=== PATIENT | male | born 1965 | race Caucasian/White ===

== ENCOUNTER 2016-10-11 15:19 | Observation (INO) | payer OTHER ==
[~2016-10-11] VITALS: Ht 182.9 cm; Wt 86.6 kg
[2016-10-11] VITALS (7 sets, daily range): BP systolic 112–193; BP diastolic 65–99; PULSE 51–74; RESP 10–22; O2SAT 93–100
--- NOTE | 2016-10-11 15:34 | ED.REPORT ---
HPI-Chest Pain 40 and Over Date of Service Oct 11, 2016 ED Provider: Miki Merritt DO A 51 year old male with a history of hyperlipidemia, kidney stones, coronary artery disease and seven cardiac stents presents to the ED complaining of chest pain onset two hours ago while the pt was working outside. The pain is described as "heavy pressure" that does not radiate significantly. It began two hours ago and has been present intermittently since ranging from 09/22 to 11/23. The pt also admits to nausea, vomiting, belching and diaphoresis, but denies shortness of breath, dysuria, back pain, cough or pleuritic pain. The pt believes that his symptoms may be due to dehydration. He notes symptoms are similar when compared to his previous SC 6 years ago in [place]. He took two 81 mg aspirin prior to arrival in addition to the 81mg he takes every morning. Nursing Notes Stated Complaint: CHEST PAIN Chief Complaint: Chest Pain Nursing Notes Reviewed: Yes Allergies: Coded Allergies: Penicillins (Verified Allergy, Unknown, 10/11/16) Scheduled Aspirin (Aspirin) 81 Mg Tablet 81 MG PO DAILY Atorvastatin (Lipitor) 80 Mg Tablet 80 MG PO DAILY Omeprazole (Omeprazole) 40 Mg Capsule.dr 40 MG PO DAILY Scheduled PRN Hydrocodone-Acetaminophen 5-300 mg (Hydrocodone-Acetaminophen 5-300 mg) 1 Each Tablet 1 TABLET PO Q4H PRN PRN For Pain Ibuprofen (Ibuprofen) 800 Mg Tablet 800 MG PO TID PRN PRN For Pain Miscellaneous Medications Multivitamin (Multivitamins) 1 Each Capsule 1 EACH PO General Time Seen by MD: 15:34 Chief Complaint Chest pain Hx Obtained From: Patient Sudden in Onset?: Yes Onset Occurred: 1 - 4 hours ago Symptom Duration: Intermittent Recent Healthcare: Recent doctor visit Similar Sx Previous: Yes Past Medical History Past Medical History hyperlipidemia kidney stones coronary artery disease denies diabetes or hypertension Past Surgical History cardiac stents x7 Smoking History Never Smoker Social History visiting from [place] Other Social History: Good social support Ambulatory Status Independent Review of Systems Respiratory: Denies: Non-productive cough, Pleuritic pain, Shortness of breath Cardiovascular: Reports: Chest pain GI: Reports: Belching, Nausea, Vomiting Musculoskeletal: Denies: Back pain, Neck pain Skin: Reports Diaphoresis, Denies Rash Complete sys rev & neg: except as marked. Male: Denies Dysuria Physical Exam Initial Vital Signs Vital Signs (First) Date Time Temp Pulse Resp B/P Pulse Ox O2 Delivery O2 Flow Rate FiO2 10/11/16 15:21 36.6 51 22 193/99 100 Room Air Initial VS: Reviewed General/Constitutional: Awake, Alert Distress / Hydration: Positive: Distress moderate appears uncomfortable Respiratory / Chest: Atraumatic, Breath sounds NL, Breath sounds = bilat, No respiratory distress chest pain is not reproducible Cardiovascular: Regular rhythm, Heart sounds NL Heart Rate / Rhythm: Positive: Bradycardia Abdomen: Atraumatic, Soft, Non-tender Neck: Atraumatic, Supple, Full range of motion Back: Atraumatic, Full range of motion Lower Extremity / Pelvis / MS: Atraumatic, Full range of motion, No edema Skin: Atraumatic, Color NL, No rash, Warm diaphoretic Neurologic: Oriented X3, Speech NL, No motor deficits, No sensory deficits Psychiatric: Affect NL, Mood NL Head / Eyes: Atraumatic, Normocephalic, PERRL, EOMI ENT: Atraumatic, Airway patent, Mucous membranes moist Upper Extremity / MS: Atraumatic, Full range of motion Interpretation & Diagnostics Interpretation & Diagnostics: CT KUB: IMPRESSION: Possible mild short segment transverse colitis, statistically infectious or inflammatory. Otherwise, no acute abnormality seen. Bilateral nephrolithiasis however no evidence of urinary obstruction. Dictated by: Jameel Shook M.D. on 10/11/2016 at 19:37 Approved by: Jameel Shook M.D. on 10/11/2016 at 19:42 Lab Results Interpretation Result Diagram: 10/13/16 1210 10/13/16 1210 Test 10/11/16 15:35 10/11/16 18:50 Hold Purple Top Tube Received (Received) D-Dimer < 0.50mg/L FEU (<0.50) Hold Blue Top Tube Received (Received) Hold [place] Top Tube Received (Received) Hold [place] Top Tube Received (Received) Urine Color Dark yellow (YELLOW) Urine Appearance Clear (CLEAR,HAZY) Urine pH 5.5 (5.0-8.0) Urine Specific [place] 1.030 (1.003-1.035) Urine Protein Tracemg/dL (NEG,TRACE) Urine Glucose (UA) Negativemg/dL (NEGATIVE) Urine Ketones 40mg/dL (NEGATIVE) Urine Occult Blood Moderate (NEGATIVE) Urine Nitrite Negative (NEGATIVE) Urine Bilirubin Negative (NEGATIVE) Urine Urobilinogen Normalmg/dL (NORMAL) Urine Leukocyte Esterase Negative (NEGATIVE) Urine RBC 3-10/hpf (0-2) Urine WBC 0-5/hpf (0-5) Urine Epithelial Cells None/hpf (NONE-MOD) Urine Crystals None seen (NONE SEEN) Urine Bacteria Few/hpf (NONE-FEW) Urine Hyaline Casts None/lpf (NONE) Urine Granular Casts None seen (NONE SEEN) Urine Waxy Casts None seen (NONE SEEN) Urine Red Blood Cell Casts None seen (NONE SEEN) Urine White Blood Cell Casts None seen (NONE SEEN) Urine Mucus Present (None Seen) Urine Trichomonas None seen (NONE SEEN) Urine Yeast None (NONE SEEN) Urinalysis Comment None Urine Culture Reflexed Not indicated ECG Interpretation ECG Interpretation: sinus bradycardia with a rate of [address] changes Time: 15:30 Interpreted by: ED physician ECG Interpretation: normal sinus rhythm with a rate of [address] changes Time: 19:48 Interpreted by: ED physician X-Ray Chest Interpretation Chest Xray Interpretation: IMPRESSION: No focal consolidation. Bibasilar scarring/atelectasis Dictated by: Jameel Shook M.D. on 10/11/2016 at 16:33 Approved by: Jameel Shook M.D. on 10/11/2016 at 16:33 Interpretation / Wet Read by: Interpret - Radiologist Re-Eval/Medical Decision Med Decision/Clinical Course 51 y/o male with significant h/o CAD s/p PCI with 7 stents presents with chest pain, nausea vomiting and diaphoresis. His pain is similar to his previous heart attack, however he believes he may have become dehydrated or had some heat stroke. He took at total of 325mg of ASA today. EKGs were neg for STEMI x2 here in the ED as well as initial and 2 hr troponin. His pain did not respond to nitro x3 but improved somewhat with morphine. It further improved with a GI coctail and lorazepam(pt requested something to help him sleep/relax) . Despite this, 3 liters of fluid, and several antiemetics he continued to have intractable nausea and vomiting. D dimer was neg. CT KUB was ordered for hematuria and abd pain but was only remarkable for nephrolithiasis without ureterolithiasis. Pt with unexplainable significant leukocytosis. He is admitted for overnight treatment/monitoring of his sx, further workup and ACS r/ o. Time of Eval: 16:11 Re-Evaluation/Progress Note: Pt rechecked, who reports that he is still in pain. Options for further treament are discussed. Time of Eval: 17:15 Patient Status: Condition improved Re-Evaluation/Progress Note: Pt rechecked, whose pain has improved somewhat. The plan for more fluids is discussed. Time of Eval: 18:50 Re-Evaluation/Progress Note: Pt rechecked, whose pain has improved but remains nauseated. Options for additional treatment are discussed. Time of Eval: 20:11 Re-Evaluation/Progress Note: Pt rechecked, who remains nauseated. The diagnosis and plan for admission are discussed. The pt understands and agrees with the plan. All questions are addressed at this time. Consultation : Referral / Consult Name: Milind Brock MD Consulted With: Hospitalist Call Returned at: 20:15 Busboy: Agrees with eval, Agrees with plan, Accepts admit Note: Spoke with Dr. Brock, hospitalist, regarding pt's case. Dr. Brock agrees with the evaluation and agrees to admit the pt. He recommends D-dimer. Counseled Regarding: Diagnosis, Lab results, Need for admission Discharge & Departure Primary Impression: Intractable nausea and vomiting Vomiting type: unspecified Qualified Code: R11.2 - Nausea with vomiting, unspecified Additional Impressions: Chest pain Chest pain type: unspecified Qualified Code: R07.9 - Chest pain, unspecified Leukocytosis Leukocytosis type: unspecified Qualified Code: D72.829 - Elevated white blood cell count, unspecified Hematuria Ruled Out: Ureterolithiasis Disposition: ADMITTED TO HOSPITAL Discharge Condition All VS Reviewed: Yes Condition: Stable Referrals: [facility] Scribe Attestation Portions of this note were transcribed by Vini Jaimes. I, Dr. Merritt personally performed the history, physical exam and medical decision-making; I reviewed and confirmed the accuracy of the information in the transcribed note. copies to: [facility] Miki Merritt DO Oct 11, 2016 15:34 VINI JAIMES Oct 11, 2016 15:42 Condition: Stable Referrals: [facility] Scribe Attestation Portions of this note were transcribed by Vini Jaimes. I, Dr. Merritt personally performed the history, physical exam and medical decision-making; I reviewed and confirmed the accuracy of the information in the transcribed note. copies to: [facility] Miki Merritt DO Oct 11, 2016 15:34 VINI JAIMES Oct 11, 2016 15:42
[2016-10-11] MEDS ORDERED: 0.9% Sodium Chloride 1,000 ML IV ONE ×3 (15:42→17:17)
[2016-10-11] MEDS ORDERED: Ondansetron 2 mg/mL 2 mL Inj IVPUSH ONE (15:45)
[2016-10-11 16:17] LABS: BASOPHILS % (AUTO) 0.2 % (0-3); EOSINOPHILS % (AUTO) 0.5 % (0-5); MONOCYTES % (AUTO) 8.1 % (4-12); Mean Corpuscular Volume 91.9 fL (81-100); NEUTROPHILS % (AUTO) 78.6 % (40-74); Platelet Count 290 bil/L (150-400)
--- NOTE | 2016-10-11 16:35 | DRSVH ---
PROCEDURE: X-RAY CHEST, TWO VIEWS ([id number]) INDICATIONS: chest pain TECHNIQUE: 2 views of the chest were acquired. COMPARISON: None. FINDINGS: Surgical changes and devices: None. Lungs and pleura: No pleural effusions or pneumothorax. Lungs are clear. Bibasilar scarring/atelec tasis. Mediastinum: Mediastinal contours are normal. Heart size is normal. Bones and chest wall: No suspicious bony abnormalities. Soft tissues appear unremarkable. IMPRESSION: No focal consolidation. Bibasilar scarring/atelectasis Dictated by: Jameel Shook M.D. on 10/11/2016 at 16:33 Approved by: Jameel Shook M.D. on 10/11/2016 at 16:33
[2016-10-11 16:56] LABS: TROPONIN T < 0.010 ug/L (0.0-0.011)
[2016-10-11] MEDS ORDERED: LORazepam 0.5 mg Tablet PO ONE (17:20)
[2016-10-11] MEDS ORDERED: LidocaineVisc 2%:Antacid 1:1 10 mL Syringe PO ONE (17:20)
[2016-10-11] MEDS ORDERED: Promethazine Inj 25 MG in Dextrose 5%-Pha MIX 50 ML IV ONE (18:55)
--- NOTE | 2016-10-11 19:44 | DRSVH ---
PROCEDURE: CT KUB ([id number]) INDICATIONS: hematuria, abd pain TECHNIQUE: Noncontrast 5 mm thick sections acquired from the diaphragms to the symphysis. 5 mm thick coronal an d sagittal reformats were then performed. For radiation dose reduction, the following was used: aut omated exposure control, adjustment of mA and/or kV according to patient size. COMPARISON: None. FINDINGS: Image quality: Excellent. Lung bases: Lung bases are clear. Heart size is normal. Urinary system: Both kidneys are normal in size. Multiple bilateral renal calculi measuring up to 7 mm on the right, and a 3 mm on the left. No hydronephrosis or perinephric fat stranding. Both ureter s appear non-dilated throughout their expected courses. Bladder wall thickness is normal; no calcifi ed bladder stones. Other solid organs: Liver and spleen are normal in size. Gallbladder negative. Pancreas is normal in contours. No adrenal nodules. Peritoneum and bowel: There is possible mild short segment thickening of transverse colon for example image 40 series 2 with adjacent mild fat stranding although limited evaluation given decompressed st ate of the time exam. No free fluid or air. Appendix not definitely identified however no suspicious right lower quadrant inflammatory changes. Nodes and vessels: No retroperitoneal or mesenteric adenopathy by size criteria. Aorta and inferior vena cava are normal in caliber. Abdominal wall: No ventral hernias. Pelvis: No free pelvic fluid. No inguinal hernias or adenopathy. Bones: No suspicious bony lesions. No vertebral body compression fractures. IMPRESSION: Possible mild short segment transverse colitis, statistically infectious or inflammatory. Otherwise, no acute abnormality seen. Bilateral nephrolithiasis however no evidence of urinary obstruction. Dictated by: Jameel Shook M.D. on 10/11/2016 at 19:37 Approved by: Jameel Shook M.D. on 10/11/2016 at 19:42
[2016-10-11 21:09] LABS: APPEARANCE,URINE CLEAR (CLEAR,HAZY); COLOR,URINE DARK YELLOW (YELLOW); PH,URINE 5.5 (5.0-8.0)
[2016-10-11 21:10] LABS: OCCULT BLOOD,URINE MODERATE (NEGATIVE); UROBILINOGEN,URINE NORMAL (NORMAL)
[2016-10-11] MEDS ORDERED: Polyethylene Glycol (PEG) 17 Gm Powder PO PRN (23:05)
[2016-10-11] MEDS ORDERED: Ondansetron 2 mg/mL 2 mL Inj IVPUSH PRN (23:05)
[2016-10-11] MEDS ORDERED: Alum-Mag Hydrox-Simeth 30 mL Suspension PO PRN (23:05)
--- NOTE | 2016-10-11 23:49 | PCM.HPMED ---
Subjective Date of Service Oct 11, 2016 Primary Provider: Admitting Physician: Milind Brock MD Primary Care Physician: Other,Physician Attending Physician: Milind Brock MD Chief Complaint: Patient is a 51-year-old male with medical history significant for coronary artery disease status post 7 stents, dyslipidemia, and GERD initially presented with "chest heaviness". 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 Chest pain constant greater than 2 hours and continues, unabated by nitroglycerin. He denies any radiation arms or jaws, nor does he have any lightheadedness dizziness or syncopal presyncopal episode. He does however, state significant nausea, vomiting, belching, and also diaphoretic. Patient proceeded to take 162 mg aspirin [address] to the ED. Patient had one similar episode of chest pain in the past, and that time, found to have occluded coronary arteries and received stenting. Patient denies any sudden cardiac arrest and his family. Prior to admission, patient was state of fairly good health, no exertional dyspnea or chest pain, no fevers no chills, no sick contact. He further denies any history of alcohol abuse or tobacco use. Review of Systems: A comprehensive review of systems was conducted with the patient and found to be negative except as above in the History of Present Illness. Allergies Coded Allergies: Penicillins (Verified Allergy, Unknown, 10/11/16) Home Medications Atorvastatin 40mg daily Omeprazole unknown dose PMH Dyslipidemia Coronary artery disease status post stenting Nephrolithiasis Surgical History Reported 7 cardiac stents 5 years ago Family History Mother with diabetes type II Father with skin cancer Social History Hx Alcohol Use: Yes Alcoholic Drinks Per Day: Occasional Hx Substance Use: No Smoking Status: Never Smoker Exam Vital Signs Vital Sign - Last Date Time Temp Pulse Resp B/P Pulse Ox O2 Delivery O2 Flow Rate FiO2 10/11/16 21:59 36.6 88 13 119/70 98 Room Air Exam General: No acute distress, appropriately interactive HEENT: Normocephalic, atraumatic. PERRLA, EOMI, Anicteric sclerae, moist conjunctivae. Neck: No JVD, No bruits. No lymphadenopathy or thyromegaly. Cardiovascular: Regular rate and rhythm with no murmurs, rubs, or gallops appreciated Pulmonary: b/l air sound with no crackles, wheezes, or rhonchi. no use of accessory muscles. Abdomen: +Bowel sound, Soft, nontender, nondistended. Negative for [place] sign , no costovertebral tenderness Extremities: No clubbing or cyanosis, no lymphedema, no b/l lower leg edema Skin: Normal temperature, turgor, and texture; no rash. No visualized skin ulcer. Neurological: CN II-VII grossly intact, moving equally on all 4 extremities Psychiatric: Normal mood and affect. AOx3 Lab and Diagnostics Result Diagram: 10/11/16 1535 10/11/16 1535 X-Rays, CTs and MRIs PROCEDURE: CT KUB INDICATIONS: hematuria, abd pain IMPRESSION: Possible mild short segment transverse colitis, statistically infectious or inflammatory. Otherwise, no acute abnormality seen. Bilateral nephrolithiasis however no evidence of urinary obstruction. Dictated by: Jameel Shook M.D. on 10/11/2016 at 19:37 PROCEDURE: X-RAY CHEST, TWO VIEWS INDICATIONS: chest pain IMPRESSION: No focal consolidation. Bibasilar scarring/atelectasis Dictated by: Jameel Shook M.D. on 10/11/2016 at 16:33 Assessment & Plan Patient is a 51-year-old male with a medical history significant for dyslipidemia and coronary artery disease status post stenting admitted for ACS rule out. Acute Chest pain. Present on admission - Probably gastritis, GERD - EKG was sinus bradycardia, no ST changes, troponin T negative 2 - Risk stratification given history of coronary artery disease with stenting, JORGE score is 3, 13% risk of [place] next 14 days - NM treadmill stress test - Start Aspirin, atorvastatin, metoprolol, and lisinopril - Telemetry order Colitis - CT scan showing possible short segment thickening of the transverse colon - Probable viral - Monitor Hypertension - Metoprolol and lisinopril as above Dyslipidemia - Atorvastatin 40 mg daily - Lipid panel ordered Hyperglycemia - A1c pending GERD - Protonix 40 mg daily CODE STATUS: Full code DVT prophylaxis: Heparin subcutaneous Bowel regimen as needed Patient Status: Patient is admitted under observation status with expected length of stay LESS than 2 midnights due to severity of presenting symptoms, risk of adverse event, and complexity of treatment plan. Attending Statement The patient was seen and examined together with Dr. Dang on 10/11 and I agree with the history, exam and plan as outlined in the note above. Clark Dang DO Oct 11, 2016 23:48 Milind Brock MD Oct 12, 2016 04:24
[2016-10-12] VITALS (8 sets, daily range): BP systolic 124–150; BP diastolic 67–78; PULSE 72–94; RESP 14–20; O2SAT 95–99
[2016-10-12] MEDS: Heparin 5,000 Unit/mL Inj SUBQ SCH ×3 (00:12→16:24)
[2016-10-12] MEDS: Pantoprazole 40 mg ER24 Tablet PO SCH ×2 (00:12→08:10)
[2016-10-12] MEDS ORDERED: ASPI-973 PO (00:58)
[2016-10-12] MEDS ORDERED: OMEP40CA36 PO (00:59)
[2016-10-12] MEDS ORDERED: MULT1CAP33 PO (01:01)
[2016-10-12] MEDS ORDERED: IBUP800T28 PO (01:01)
[2016-10-12] MEDS ORDERED: HYDR-3090 PO (01:01)
[2016-10-12] MEDS ORDERED: ATOR80TA PO (01:01)
[2016-10-12 02:48] LABS: BASOPHILS % (AUTO) 0.1 % (0-3); EOSINOPHILS % (AUTO) 0 % (0-5); MONOCYTES % (AUTO) 8.9 % (4-12); Mean Corpuscular Hemoglobin 31.8 pg (27.0-35.0); Mean Corpuscular Volume 92.1 fL (81-100); NEUTROPHILS % (AUTO) 78.1 % (40-74); Platelet Count 211 bil/L (150-400)
--- NOTE | 2016-10-12 14:13 | PCM.PNMED ---
Subjective Date of Service Oct 12, 2016 Subjective Mr. Adam Zhao is a 51 year old gentleman with a significant past medical history of severe Coronary Artery disease with 7x stents. He has been admitted under observation status due to with recent onset of chest pressure, diaphoresis , nausea, and vomiting after working outside. He reports the pain was constant and ws not amenable to nitro at home. The pain was non radiating. He denies lightheadedness, syncope, shortness of breath, abdominal pain, diarrhea, constipation, dysuria. Exam Vital Signs Vital Sign - Last Date Time Temp Pulse Resp B/P Pulse Ox O2 Delivery O2 Flow Rate FiO2 10/12/16 12:43 37.2 75 16 130/72 99 Room Air Intake and Output 10/11/16 10/11/16 10/12/16 Cumulative From/Thru 15:00 23:00 07:00 10/11/16 15:21 - 10/12/16 05:38 Intake Total 3100 ml 210 ml 3310 ml Output Total 775 ml 775 ml Balance 3100 ml -565 ml 2535 ml Intake Oral 200 ml 200 ml IV Total 3100 ml 10 ml 3110 ml Output Urine Total 775 ml 775 ml # Bowel Movements 0 0 Exam General: Middle aged gentleman in no acute distress, appropriately interactive HEENT: Normocephalic, atraumatic. PERRLA, EOMI, Anicteric sclerae, moist conjunctivae. Neck: No JVD, No bruits. No lymphadenopathy or thyromegaly. Cardiovascular: CTAB with no crackles, wheezes, or rhonchi. no use of accessory muscles. Abdomen: Normoactive Bowel sound, Soft, nontender, nondistended. Extremities: No clubbing or cyanosis, no lymphedema,no edema Skin: Normal temperature, turgor, and texture; no rash. No visualized skin ulcers. Neurological: CN II-VII grossly intact, moving equally on all 4 extremities Psychiatric: Normal mood and affect. A&Ox3 IVs and Medications Medications Reviewed: Medications were reviewed in detail Lab and Diagnostics Result Diagram: 10/12/1623410/12/16234 X-Rays, CTs and MRIs PROCEDURE: CT KUB INDICATIONS: hematuria, abd pain IMPRESSION: Possible mild short segment transverse colitis, statistically infectious or inflammatory. Otherwise, no acute abnormality seen. Bilateral nephrolithiasis however no evidence of urinary obstruction. Dictated by: Jameel Shook M.D. on 10/11/2016 at 19:37 PROCEDURE: X-RAY CHEST, TWO VIEWS INDICATIONS: chest pain IMPRESSION: No focal consolidation. Bibasilar scarring/atelectasis Dictated by: Jameel Shook M.D. on 10/11/2016 at 16:33 Assessment & Plan Patient is a 51-year-old male with a medical history significant for dyslipidemia and coronary artery disease status post stenting admitted for ACS rule out. Acute Chest pain. Present on admission. Active. - Likely ACS, Significant CAD and 7x stents. - EKG was sinus bradycardia, no ST changes, troponin T negative 2 - Risk stratification given history of coronary artery disease with stenting, JORGE score is 3, 13% risk of [place] next 14 days - Start Aspirin, atorvastatin, metoprolol, and lisinopril - Telemetry order - NM treadmill stress test complete and pending. - Troponins positive 0.370. chronic conditions. Hypertension - Metoprolol and lisinopril as above Dyslipidemia - Atorvastatin 40 mg daily - Lipid panel ordered Hyperglycemia - A1c pending GERD - Protonix 40 mg daily CODE STATUS: Full code DVT prophylaxis: Heparin subcutaneous Bowel regimen as needed Patient Status: Patient is admitted under observation status with expected length of stay LESS than 2 midnights due to severity of presenting symptoms, risk of adverse event, and complexity of treatment plan. Pain Evaluation: Adequate Pain Control Time spent 35 minutes Attending Statement I interviewed and examined the patient on rounds today. High pretest probability of coronary ischemia with negative treadmill test. Await cardiology opinion. I agree with the assessment and plan as stated above. ISAIAS LUCIANO DO Oct 12, 2016 14:13 Tariq Vasquez MD Oct 12, 2016 17:40
[2016-10-13] VITALS (18 sets, daily range): BP systolic 122–147; BP diastolic 65–86; PULSE 64–86; RESP 15–20; O2SAT 96–99
[2016-10-13] MEDS: Heparin 5,000 Unit/mL Inj SUBQ SCH ×2 (00:42→08:37)
[2016-10-13] MEDS: Pantoprazole 40 mg ER24 Tablet PO SCH (08:37)
[2016-10-13] MEDS ORDERED: Heparin 5,000 Unit/mL Inj IVPUSH PRN (10:35)
[2016-10-13] MEDS ORDERED: Heparin 25K Unit/500mL 0.45 NS 25,000 UNIT in IV Premix 1 EACH IV SCH (10:35)
[2016-10-13] MEDS ORDERED: 0.9% Sodium Chloride 1,000 ML IV ONE ×2 (12:14→18:35)
[2016-10-13 12:21] LABS: Mean Corpuscular Hemoglobin 31.7 pg (27.0-35.0); Mean Corpuscular Volume 91.1 fL (81-100)
[2016-10-13 13:02] LABS: Bilirubin, Direct 0.2 mg/dL (0.0-0.3); Creatine Kinase 183 U/L (21-232)
[2016-10-13 13:05] LABS: TROPONIN T 0.257 ug/L (0.0-0.011)
--- NOTE | 2016-10-13 13:31 | CONS ---
[address] [address] CONSULTATION REPORT PATIENT: SERENA SOARES : 1965 MR#: [id number] ADMIT: 10/11/2016 JOB ID: [id number] DATE OF SERVICE: 10/13/2016 CHIEF COMPLAINT: Chest pain. HISTORY OF PRESENT ILLNESS: Patient is a 51-year-old man with history of coronary artery disease, status post multivessel PCI, April 2010, at [facility]. He resides in [facility] but is visiting his father and helping him care for his property. He was up on a ladder, painting his father's house, when suddenly he experienced severe chest pain, sweating, nausea, and vomiting. He describes the pain as "heavy pressure," which is nonradiating and is localized substernally. It was 7/10 to 9/10 intensity and lasted 2 hours before it subsided. It responded favorably to normal saline boluses and nitroglycerin drip. Cardiology is consulted to assist with management after troponins came back positive. Workup so far included reassuring graded exercise stress test with myocardial perfusion imaging performed on yesterday, on October 12. However, after the stress test, his troponin came back and was elevated and most recently at 0.396. Rest images were acquired today. PAST MEDICAL HISTORY: 1. Coronary artery disease. Status post stenting in 2010 with normal stress test in 2013. The patient is closely monitored by Dr. Chaney of [facility] in [place]. Angiogram back in 2010 was initiated due to elevated troponin I of 0.51 with classic angina. Cardiac catheterization demonstrated extensive disease throughout right coronary artery with chronic distal occlusion and a huge collateral from the left. He also had significant mid LAD disease. Left circumflex has moderate irregularities. Right coronary artery was pre-dilated. A 3.5 x 38 TAXUS stent was deployed distally, 3.5 x 32 was deployed in the mid portion, 3.5 x 16 mm stent was deployed more proximally. There was a gap in between the placement of the two stents which had a focal stenosis and had to be covered with a 3.5 x 8 mm TAXUS stent. Proximal area had a filling defect which may represent thrombus or possible dissection, which was covered with a 4 x 16 mm stent. A 3.5 x 12 mm TAXUS stent was placed across 80% mid LAD lesion. The implant was complicated by distal dissection covered with a 3.5 x 8 mm stent. Ventriculogram at that time showed ejection fraction of 55%. Circumflex was described as having 40% to 50% mid LCX lesion. Prior to intervention, patient had long 80% lesion with focal 90% stenosis of the right coronary artery and a huge collateral to the posterolateral branch. 2. Hyperlipidemia--controlled. Most recent lipids, October 12, 2016, showed total cholesterol 145, triglycerides 109, HDL 42, LDL 81. 3. Chronic low back pain. Treated with medical marijuana. REVIEW OF SYSTEMS: Significant for chest pressure while painting house, associated with nausea, sweating and vomiting. Otherwise 10 point ROS is negative. FAMILY HISTORY: Significant for mother with type 2 diabetes. Father with skin cancer. 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 He does not smoke tobacco but he uses medical marijuana for low back pain. ALLERGIES: PENICILLIN. CURRENT MEDICATION IN THE HOSPITAL: 1. Aspirin 81 mg daily. 2. Atorvastatin 40 mg daily. 3. Metoprolol tartrate 12.5 mg twice a day. 4. Lisinopril 5 mg daily. 5. Heparin per ACS protocol. Morning labs ordered and pending. Chest x-ray: I personally reviewed. Shows no focal consolidation, basal scarring and atelectasis. CT KUB without contrast for abdominal pain showed possible mild short segment of transverse colitis but no acute abnormality seen. He has bilateral nephrolithiasis but no evidence of hydronephrosis. PHYSICAL EXAMINATION: Vital signs: Temperature 37.2, blood pressure 133/79, pulse 86 beats per minute. Satting 99% on room air. Well-nourished man, no apparent distress. Eyes: No scleral icterus. Dentition is good. Neck supple. No lymphadenopathy. No carotid bruits. Heart: Normal S1, S2. No murmurs. Lungs: Clear to auscultation anteriorly. Abdomen is soft, positive bowel sounds. No hepatosplenomegaly. Extremities: Warm, well perfused. No clubbing, cyanosis, or edema. Skin: No rashes or lesions. Vascular exam shows intact right femoral artery pulses with soft bruits bilaterally. The patient has intact bilateral posterior tibial pulses but absent bilateral dorsalis pedis pulses. LABORATORIES: Were reviewed. Yesterday's labs showed mildly elevated white count of 13.5, with evidence of left shift. Creatinine was 0.6. Troponin T was most recently 0.396 as of yesterday afternoon but has not been checked yet today. Patient urinalysis showed moderate occult blood, negative leukocyte esterase, negative nitrites, 3-5 red blood cells per high power field, 0-5 white blood cells, mucus in the urine. Culture was not indicated. I reviewed his EKG during the stress test, and prior to walking on the treadmill he has sinus bradycardia, 52 beats per minute. Normal axis. No left ventricular hypertrophy and no significant ST-segment changes. There is possible left atrial enlargement present. GXT/MPI: Abnormal but low risk graded exercise stress test with myocardial perfusion imaging. Dynamic ST changes with [address] depression in the leads V5 and V6. No chest discomfort during physical activity. There is medium sized mild intensity basal and mid inferior perfusion defect present on both supine and prone stress images. No rest images are available for review. There is subtle basal inferior hypokinesis. Otherwise normal wall motion throughout. No prior study available for comparison. CK has not been checked but I just ordered it. Echo: Interpretation Summary 1) Normal left ventricular thickness, size, wall motion, and systolic function (EF 55-60%). 2) Normal right ventricular size and function. 3) No significant valvular abnormalities. 4) No prior Echo available for comparison. ASSESSMENT AND PLAN: This is a 51-year-old man with coronary artery disease. He has had a multivessel intervention to severely diseased right coronary artery and focal disease to the left anterior descending. At that time six years ago he had moderate circumflex disease. While his risk factors appear to be controlled, and he has non-STEMI. Consent was obtained for cardiac catheterization. All questions were answered. I thoroughly reviewed the records from Dr. Chaney's office and contacted Dr. Chaney's partner, Dr. Henriquez, and discussed the case with him. The patient's was present at bedside. Thank you very much for the opportunity to evaluate the patient. SUELLEN
--- NOTE | 2016-10-13 13:57 | PCM.PNMED ---
Subjective Date of Service Oct 13, 2016 Subjective Mr. Adam Zhao is a 51 year old gentleman with a significant past medical history of severe Coronary Artery disease with 7x stents. He has been admitted under observation status due to with recent onset of chest pressure, diaphoresis , nausea, and vomiting after working outside. He reports the pain was constant and ws not amenable to nitro at home. The pain was non radiating. He denies lightheadedness, syncope, shortness of breath, abdominal pain, diarrhea, constipation, dysuria. Patient remains asymptomatic today. Feels better than the day before. Dr. Frost is planning cardiac catheterization around 1500 today. Exam Vital Signs Vital Sign - Last Date Time Temp Pulse Resp B/P Pulse Ox O2 Delivery O2 Flow Rate FiO2 10/13/16 09:55 78 10/13/16 08:35 37.2 16 133/79 99 Room Air Intake and Output 10/12/16 10/12/16 10/13/16 Cumulative From/Thru 15:00 23:00 07:00 10/11/16 15:21 - 10/13/16 06:10 Intake Total 1280 ml 600 ml 5190 ml Output Total 1600 ml 2375 ml Balance -320 ml 600 ml 2815 ml Intake Oral 1280 ml 600 ml 2080 ml IV Total 3110 ml Output Urine Total 1600 ml 2375 ml # Voids 3 3 # Bowel Movements 0 Exam General: Middle aged gentleman in no acute distress, appropriately interactive HEENT: Normocephalic, atraumatic. PERRLA, EOMI, Anicteric sclerae, moist conjunctivae. Neck: No JVD, No bruits. No lymphadenopathy or thyromegaly. Cardiovascular: CTAB with no crackles, wheezes, or rhonchi. no use of accessory muscles. Abdomen: Normoactive Bowel sound, Soft, nontender, nondistended. Extremities: No clubbing or cyanosis, no lymphedema,no edema Skin: Normal temperature, turgor, and texture; no rash. No visualized skin ulcers. Neurological: CN II-VII grossly intact, moving equally on all 4 extremities Psychiatric: Normal mood and affect. A&Ox3 IVs and Medications Medications Reviewed: Medications were reviewed in detail Lab and Diagnostics Result Diagram: 10/13/16 1210 10/13/16 1210 X-Rays, CTs and MRIs PROCEDURE: CT KUB INDICATIONS: hematuria, abd pain IMPRESSION: Possible mild short segment transverse colitis, statistically infectious or inflammatory. Otherwise, no acute abnormality seen. Bilateral nephrolithiasis however no evidence of urinary obstruction. Dictated by: Jameel Shook M.D. on 10/11/2016 at 19:37 PROCEDURE: X-RAY CHEST, TWO VIEWS INDICATIONS: chest pain IMPRESSION: No focal consolidation. Bibasilar scarring/atelectasis Dictated by: Jameel Shook M.D. on 10/11/2016 at 16:33 Assessment & Plan Patient is a 51-year-old male with a medical history significant for dyslipidemia and coronary artery disease status post stenting admitted for ACS rule out. Acute Chest pain. Present on admission. Active. - Likely ACS, Significant CAD and 7x stents. - EKG was sinus bradycardia, no ST changes, troponin T negative 2. - Risk stratification given history of coronary artery disease with stenting, JORGE score is 3, 13% risk of CO next 14 days. - Start Aspirin, atorvastatin, metoprolol, and lisinopril. - Telemetry order. - NM treadmill stress test complete and relatively normal. - Troponins positive 0.370 x3. - Cardiac catheterization 10/13/16 at 1500. NPO. chronic conditions. Hypertension - Metoprolol and lisinopril as above Dyslipidemia - Atorvastatin 40 mg daily - Lipid panel ordered Hyperglycemia - A1c pending GERD - Protonix 40 mg daily CODE STATUS: Full code DVT prophylaxis: Heparin subcutaneous Bowel regimen as needed Patient Status: Patient is admitted under observation status with expected length of stay LESS than 2 midnights due to severity of presenting symptoms, risk of adverse event, and complexity of treatment plan. Pain Evaluation: Adequate Pain Control Resuscitation Status: CPR: Attempt Resuscitation Time spent 35 minutes spent in patient assessment in care coordination including review of data with it web development consultant on the unit Attending Statement I interviewed and examined the patient on rounds today. I agree with the assessment and plan as stated above. ISAIAS LUCIANO DO Oct 13, 2016 13:57 Tariq Vasquez MD Oct 13, 2016 19:08
[2016-10-13] MEDS ORDERED: Nitroglycerin 50,000 mcg/250 mL D5W Premix IV ONE (14:16)
[2016-10-13] MEDS ORDERED: fentaNYL-PF 50 mCg/mL 2 mL Inj ONE ×2 (14:16→15:36)
[2016-10-13] MEDS ORDERED: Heparin 1,000 Unit/mL 10 mL Inj ONE (14:16)
--- NOTE | 2016-10-13 14:37 | DRSVH ---
[facility] [address] [place] [address] Echocardiogram Report Name: SERENA SOARES BStudy Date : 10/13/2016 Height: 72 in Hospital Exam Location: [facility] Weight: 19 0 lb Gender: Male BSA: 2.1 m2 : 1965 Age: 51 yrs BP: 133/79 mmHg Reason For Study: CAD Performed By: Pooja Crow Referring Physician: CHRISTIANA COOK Interpretation Summary 1) Normal left ventricular thickness, size, wall motion, and systolic function (EF 55-60%). 2) Normal right ventricular size and function. 3) No significant valvular abnormalities. 4) No prior Echo available for comparison. Procedure: A two-dimensional transthoracic echocardiogram with color flow and Doppler was performed. The study quality was technically good. There is no prior echocardiogram noted for this patient. The patient was in normal sinus rhythm during the exam. Left Ventricle: The left ventricle is normal in size. There is normal left ventricular wall thickness. The ejection fraction is estimated to be 55-60%. Left ventricular systolic function is normal without focal wall motion abnormalities. Assessment of diastolic parameters indicates normal left ventricular diastolic function and normal filling pressures. Right Ventricle: The right ventricle is normal in size, thickness and function. Atria: The left atrial size is normal. Right atrial size is normal. The interatrial septum is intact with no evidence for an atrial septal defect. Mitral Valve: The mitral valve leaflets appear mildly thickened, but open well. There is trace mitral regurgitation. Aortic Valve: The aortic valve is trileaflet. The aortic valve opens well. There is no aortic valve stenosis. No aortic regurgitation is present. Tricuspid Valve: The tricuspid valve is normal in structure and function. No tricuspid regurgitation. Pulmonic Valve: The pulmonic valve is normal in structure and function. There is no pulmonic valvular regurgitation. Great Vessels: The aortic root is normal size. The dimensions of the ascending aorta are normal. The IVC is of normal diameter and collapses greater than 50% with a sniff. This suggests a low right atrial pressure of 3 mm Hg. Pericardium/ Pleura There is no pericardial effusion. There is no pleural effusion. MMode/2D Measurements & Calculations LVIDd: 5.6 cm LA dimension: 3.7 cm RA long axis Ao root diam LVIDs: 3.7 cm FS: 34.2 % LA A2 area: 21.7 cm RA area Aortic Jxn: 3.1 cm IVSd: 1.1 cm LA A4 area: 22.5 cm Ao Arch Diam (Prox LVPWd: 0.82 cm LA length (vol) : 19.8 cm Trans): 3.5 cm RA vol LA vol: 77.6 ml : 62.7 ml LA vol index RA : 30.1 mm/ RVDd major IVC diam: 1.7 cm : 5.7 cm LV kiser. diameter/BSA LV sys. diameter/BSA RVD1 (basal) RVD2 (mid): 3.0 cm (cm/m^2): 2.7 (cm/m^2): 1.8 Doppler Measurements & Calculations Ao V2 max MV E max theo MV E/A: 1.2 PA V2 max : 136.4 cm/sec : 74.3 cm/sec Med Peak E' Theo : 104.2 cm/sec Ao max PG MV A max theo PA mean PG : 7.4 mmHg : 60.0 cm/sec E/E' med: 8.7 Ao mean PG MV P1/2t: 69.8 msec Lat Peak E' Theo PA Accel Time : 3.5 mmHg : 0.17 sec E/E' lat: 7.8 E/e' average: 8.3 MV A dur: 0.14 sec MV dec time MV P1/2t max theo Ao V2 mean PA V2 mean : 0.23 sec : 82.5 cm/sec : 67.5 cm/sec MVA(P1/2t): 3.2 cm2 Ao V2 VTI: 26.0 cm Reading Physician:02:36 PM
[2016-10-13] MEDS ORDERED: Heparin 1,000 Units/500 mL NS Premix IV ONE (14:52)
[2016-10-13] MEDS ORDERED: Heparin 10,000 Unit/1,000 mL NS Premix IV ONE (14:52)
[2016-10-13] MEDS ORDERED: 0.9% Sodium Chloride 0 ML ONE (15:39)
[2016-10-13] MEDS ORDERED: 0.9% Sodium Chloride 100 ML ONE (15:39)
[2016-10-13] MEDS ORDERED: Adenosine Inj 20 ML IV ONE (15:39)
[2016-10-13] MEDS ORDERED: Atropine 1 mg/10 mL (Code) Syringe ONE (15:44)
--- NOTE | 2016-10-13 16:21 | CS94 ---
[address] [address] DIAGNOSTIC CARDIAC CATHETERIZATION PATIENT: SERENA SOARES : 1965 MR#: [id number] ADMIT: 10/11/2016 JOB ID: [id number] SERVICE DATE: 10/13/2016 CHIEF COMPLAINT: Non-STEMI. PATIENT PRESENTATION: Patient is a 51-year-old man with history of coronary artery disease, status post non-STEMI in 2010, treated with five drug-eluting stents to right coronary artery and two stents in the LAD. The patient comes in with episode of severe chest pain, diaphoresis, nausea and vomiting, as he was doing heavy physical work painting his father's house. Troponin T peaked at 0.35 and Cardiology is consulted to assist with management. PROCEDURES PERFORMED: 1. Left heart catheterization. 2. Selective coronary angiograms. 3. Right common femoral artery vascular access under ultrasound guidance. 4. Hemodynamic measurements of left ventricular end-diastolic pressure. METHOD: Following informed consent, patient was prepped and draped in the usual sterile fashion. A 6-Algerian sheath was placed in right common femoral artery. Sheath placement was confirmed via femoral angiogram. JL4 and JR4 catheters were used to engage left main and right coronary artery ostium, respectively. Hand injection in craniocaudal angulation was used to obtain selective coronary angiograms. All exchanges were performed over a wire. Left ventricle was entered via pigtail catheter. Left ventricular end-diastolic pressure was recorded. There was no evidence of aortic stenosis based on pullback. Case was turned over for intervention. FINDINGS: Right common femoral artery gives rise to SFA and profunda. Sheath enters the right common femoral artery at the 50th percentile serena of the femoral head. There is no evidence of contrast extravasation or dissection. The right common femoral artery is somewhat ectatic. HEMODYNAMICS MEASUREMENTS: Left ventricular end-diastolic pressure is 18. There is no evidence of aortic stenosis based on pullback. Blood pressure, aortic pressure was 154/86. CORONARY ANGIOGRAMS: Left main is a normal-caliber vessel, but it is quite short. It gives rise to LAD and the circumflex as well as a very small ramus intermedius. No obstructive lesions in the left main are seen. It has excellent blow-back and no dampening on engagement. Left anterior descending is a large vessel. It gives rise to a large first diagonal branch, medium second diagonal branch, and small third diagonal branch. There is a 50% in-stent restenosis in the mid LAD at a mcfp point between the first and second diagonal branch. Circumflex is a nondominant vessel. It gives rise to a large first obtuse marginal branch, small second obtuse marginal branch, and a large third obtuse marginal branch. There is a 40% stenosis just distal to the large first obtuse marginal branch and about a 40% to 50% stenosis at the bifurcation of the second obtuse marginal branch. Right coronary artery is a previously heavily stented vessel. Five TAXUS were deployed by history in April 2010 in [place] in the setting of a non-STEMI. There is a 50% lesion consistent with in-stent restenosis in the mid portion of right coronary artery at a mcfp point between atrial recurrent branch and acute marginal branch. There is no collateral flow visualized as described on previous angiogram. CONTRAST USED: 50 cc. FLUORO TIME: Two minutes. IMPRESSION: 1. Elevated filling pressure of 18 mmHg. 2. Moderate disease in the left anterior descending, circumflex, and mid right coronary artery. Case was turned over for FFR and possible intervention. Thank you very much for the opportunity to evaluate this patient.
[2016-10-13] MEDS: Sodium Chloride LOK Flush 10 mL Syringe IVFLUSH SCH (16:30)
--- NOTE | 2016-10-13 17:32 | DI95 ---
[address] [address] INTERVENTIONAL CARDIAC CATHETERIZATION PATIENT: SERENA SOARES : 1965 MR#: [id number] ADMIT: 10/11/2016 JOB ID: [id number] DATE OF SERVICE: 10/13/2016 PATIENT PROFILE: The patient is a 51-year-old male who had multiple stenting to the left anterior descending artery and right coronary artery in April 2010. He presented with non ST elevated myocardial infarction. PROCEDURE: 1. Fractional flow reserve to the mid right coronary artery. 2. Balloon angioplasty and stenting to the mid right coronary artery. 3. Vascular closure device Perclose. COMPLICATIONS: None. DESCRIPTION OF PROCEDURE: Following diagnostic angiogram performed by Dr. Frost, heparin 4,000 units were given. A 6-Estonian 3DRC guide was advanced to the right coronary ostium. A flow wire was directed into the right coronary artery. Adenosine was given infusion IV. FFR was measured at 0.70. Additional 6,000 units of heparin were given. The flow wire was removed and replaced with a Run-Through wire. The mid right coronary artery lesion was predilated with a 3.0 x 20 mm balloon. A resolute dick 3.5 x 22 mm stent was placed inside the lesion and deployed at 14 atmospheres for 30 seconds. Final angiogram was obtained. Following sheath removal, hemostasis was achieved by using a Perclose device. The patient tolerated the procedure well. He was transferred to [facility] in good condition. TOTAL CONTRAST USED: 85 cc. FLUOROSCOPY TIME: 4.4 minutes. RESULTS: 1. Fractional flow reserve of the mid right coronary artery is 0.70, which indicates hemodynamically significant stenosis. 2. Successful balloon angioplasty and stenting to the severe in-stent restenosis of the mid right coronary artery by deploying one drug-eluting stent (resolute dick 3.5 x 22 mm) to achieve an excellent angiographic result with JORGE-3 flow distally. [facility] SYSTEMGaby
[2016-10-13] MEDS ORDERED: Ondansetron 2 mg/mL 2 mL Inj IVPUSH PRN (18:35)
[2016-10-13] MEDS ORDERED: Sodium Chloride LOK Flush 10 mL Syringe IVFLUSH PRN (18:35)
[2016-10-13] MEDS ORDERED: Atropine 1 mg/10 mL (Code) Syringe IVPUSH PRN (18:35)
[2016-10-13] MEDS ORDERED: 0.9% Sodium Chloride 250 ML BOLUS IV PRN (18:35)
--- NOTE | 2016-10-13 20:35 | DRSVH ---
PROCEDURE: EITHER REST OR STRESS ONLY INDICATIONS: ACS ruled out. COMPARISON: None. Radiopharmaceutical: Stress dose 19.4 mCi of technetium 99 tetrofosmin Patient presentation: Patient is a 51-year-old man with substernal chest discomfort while doing heavy housework. pt has h/o CAD with NSTEMI in 2011 status post PCI to RCA and LAD. FINDINGS: Graded exercise stress test: Following informed consent patient walked on Sheldon protocol for 9 minute s and 1 second. Study was terminated due to fatigue. Patient had mildly reduced exercise capacity. Fu nctional aerobic impairment index is 8%. Patient had [address] segment changes; no chest discomfor t. Rest EKG is normal; pt developed occasional PVCs during gxt. Raw data: Oral myocardial tracer uptake. Lung heart ratio is grossly normal. Myocardial perfusion imaging: There is a medium sized mild intensity basal and mid inferior perfusion defect. It is also present on prone images. Quantitative gated SPECT: At peak stress ejection fraction is 72%. There is subtle basal inferior hyp okinesis. IMPRESSION: Abnormal but low risk graded exercise stress test with myocardial perfusion imaging. Dynamic ST changes with [address] depression in the leads V5 and V6. No chest discomfort during physical activity. There is medium sized mild intensity basal and mid inferior perfusion defect present on both supine a nd prone stress images. No rest images are available for review. There is subtle basal inferior hypokinesis. Otherwise normal wall motion throughout. No prior study available for comparison. Dictated by: Shira Frost M.D. on 10/13/2016 at 20:24 Approved by: Shira Frost M.D. on 10/13/2016 at 20:33
[2016-10-14] MEDS: Sodium Chloride LOK Flush 10 mL Syringe IVFLUSH SCH ×2 (00:30→09:09)
[2016-10-14 02:52] LABS: Mean Corpuscular Hemoglobin 31.7 pg (27.0-35.0); Mean Corpuscular Volume 91.3 fL (81-100)
[2016-10-14 02:54] VITALS: BP 136/79; PULSE 62; RESP 20; O2SAT 98
[2016-10-14] MEDS: Pantoprazole 40 mg ER24 Tablet PO SCH (09:08)
[2016-10-14 10:00] VITALS: PULSE 84
--- NOTE | 2016-10-14 10:24 | PCM.DIMED ---
ISAIAS LUCIANO DO 10/14/16 1020: Discharge Instructions Date of Service Oct 14, 2016 Dates of Hospitalization Oct 11, 2016 at 21:52 Discharge Diagnosis Discharge Diagnosis NSTEMI with balloon angioplasty and stenting to the severe in-stent stenosis of the mid right coronary artery by deploying one drug-eluting stent. Medication Instructions Additional med instructions Continue: Aspirin 81 mg daily. Atorvastatin 80 mg Daily. Discontinue: Omeprazole daily. Start new medications: - Metoprolol succinate 25 mg daily. - Lisinopril 5 mg daily. - Zantac 150 mg twice per day. - Plavix 75 mg daily. Patient Instructions Patient Instructions Avoid lifting > 10 pounds for 7-10 days. Avoid submersion under water of your right groin region for at least 2-3 days. You may shower. Avoid swimming in lakes/streams/ponds/ocean for 2 weeks. Follow-up plan Follow up with your financial assistance specialist in 1 weeks time for a wound check, and 3-4 weeks following cardiac catheterization. Follow-up with PCP in: 3 weeks (Dr. Tiny Vaughan in [place], [place]. ) Tariq Vasquez MD 10/15/16 0708: Discharge Instructions Attending's Statement I interviewed and examined the patient on rounds today. I agree with the assessment and plan as stated above. ISAIAS LUCIANO DO Oct 14, 2016 10:20 Tariq Vasquez MD Oct 15, 2016 07:08
[2016-10-14 10:27] VITALS: BP 124/78; PULSE 89; RESP 20; O2SAT 99
[2016-10-14] MEDS ORDERED: CLOP75TA3 PO (10:27)
[2016-10-14] MEDS ORDERED: RANI150T11 PO (10:27)
[2016-10-14] MEDS ORDERED: METO25TA99 PO (10:27)
[2016-10-14] MEDS ORDERED: LISI-571 PO (10:27)
--- NOTE | 2016-10-14 11:45 | PROG NOTE ---
[address] [address] PROGRESS NOTE PATIENT: SERENA SOARES : 1965 MR#: [id number] ADMIT: 10/11/2016 JOB ID: [id number] CARDIOLOGY PROGRESS NOTE: DATE: 10/14/2016 CHIEF COMPLAINT: Atypical angina. SUBJECTIVE: Yesterday the patient underwent cardiac catheterization which showed hemodynamically significant mid RCA stenosis treated with a single drug-eluting stent. The patient is doing well. He had no events on tele and he says he is ready to go home. OBJECTIVE: Vital signs: Temperature 36.6, blood pressure 124/78, pulse is 89 beats per minute. He is satting 99% on room air. Well-nourished man, no apparent distress. Eyes: No scleral icterus. Heart: Normal S1, S2. No murmurs. Lungs: Clear anteriorly. Abdomen: Soft, positive bowel sounds. No hepatosplenomegaly. Extremities: Warm, well perfused. No clubbing, cyanosis or edema. Skin: No rashes or lesions. Right common femoral artery vascular access shows no hematoma, no ecchymosis and no evidence of bruit. CURRENT MEDICATIONS: 1. Aspirin 81 mg daily. 2. Plavix 75 mg daily. 3. Toprol-XL 25 mg daily. 4. Lisinopril 5 mg daily. 5. Atorvastatin 80 mg daily. 6. Zantac 150 mg daily. ASSESSMENT AND PLAN: This is a 51-year-old man admitted with non STEMI, underwent cardiac cath, which showed in-stent restenosis treated with a single drug-eluting stent. He is back to normal. Troponin T peaked at 0.396. Therefore, he is sent home in stable condition on his inpatient meds. I encouraged him to followup with his primary ingot passer in about a month. At that point in time, he can be enrolled in cardiac rehab program. His ingot passer is out of town. So, I spoke with his partner, Dr. Henriquez, to coordinate care. The patient agrees with the recommendations. He was instructed to avoid heavy lifting, nothing over 10 pounds for 10 days. Thank you very much for the opportunity to participate in his care.
--- NOTE | 2016-10-17 16:17 | PCM.DC.MED ---
Discharge Summary Date of Service Oct 17, 2016 Dates of Hospitalization Date of Hospital Admission Oct 11, 2016 at 21:52 Date of Discharge: Oct 14, 2016 Providers: Admitting Physician: Milind Brock MD Primary Care Physician: Other,Physician Attending Physician: Tariq Vasquez MD Diagnosis at Time of Discharge Diagnosis at Time of Discharge NSTEMI with balloon angioplasty and stenting to the severe in-stent stenosis of the mid right coronary artery by deploying one drug-eluting stent. Procedures XRay, CTs & MRIs PROCEDURE: CT KUB INDICATIONS: hematuria, abd pain IMPRESSION: Possible mild short segment transverse colitis, statistically infectious or inflammatory. Otherwise, no acute abnormality seen. Bilateral nephrolithiasis however no evidence of urinary obstruction. Dictated by: Jameel Shook M.D. on 10/11/2016 at 19:37 PROCEDURE: X-RAY CHEST, TWO VIEWS INDICATIONS: chest pain IMPRESSION: No focal consolidation. Bibasilar scarring/atelectasis Dictated by: Jameel Shook M.D. 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 Chest pain constant greater than 2 hours and continues, unabated by nitroglycerin. He denies any radiation arms or jaws, nor does he have any lightheadedness dizziness or syncopal presyncopal episode. He does however, state significant nausea, vomiting, belching, and also diaphoretic. Patient proceeded to take 162 mg [address] to the ED. Patient had one similar episode of chest pain in the past, and that time, found to have occluded coronary arteries and received stenting. Patient denies any sudden cardiac arrest and his family. Prior to admission, patient was state of fairly good health, no exertional dyspnea or chest pain, no fevers no chills, no sick contact. He further denies any history of alcohol abuse or tobacco use. During his hospital stay he was diagnosed with a non STEMI, underwent cardiac cath, which showed in-stent restenosis treated with a single drug-eluting stent. He is back to normal. Troponin T peaked at 0.396. Therefore, he is sent home in stable condition on his inpatient meds. -I encouraged him to followup with his primary anesthesiologist in about a month. - At that point in time, he can be enrolled in cardiac rehab program. - His anesthesiologist is out of town. - So, I spoke with his partner, Dr. Henriquez, to coordinate care. - The patient agrees with the recommendations. He was instructed to avoid heavy lifting, nothing over 10 pounds for 10 days. He was discharged in stable medical condition with appropriate medications and follow up plan. Hospital Course Acute Chest pain. Present on admission. Resolved. Hypertension - Metoprolol and lisinopril as above Dyslipidemia - Atorvastatin 40 mg daily - Lipid panel ordered Hyperglycemia - A1c pending GERD - Protonix 40 mg daily Exam Vital Signs (Last) Date Time Temp Pulse Resp B/P Pulse Ox O2 Delivery O2 Flow Rate FiO2 10/14/16 10:27 36.6 89 20 124/78 99 Room Air Exam General: Middle aged gentleman in no acute distress, appropriately interactive HEENT: Normocephalic, atraumatic. PERRLA, EOMI, Anicteric sclerae, moist conjunctivae. Neck: No JVD, No bruits. No lymphadenopathy or thyromegaly. Cardiovascular: CTAB with no crackles, wheezes, or rhonchi. no use of accessory muscles. Abdomen: Normoactive Bowel sound, Soft, nontender, nondistended. Extremities: No clubbing or cyanosis, no lymphedema,no edema Skin: Normal temperature, turgor, and texture; no rash. No visualized skin ulcers. Neurological: CN II-VII grossly intact, moving equally on all 4 extremities Psychiatric: Normal mood and affect. A&Ox3 Test 10/11/16 15:35 10/11/16 18:50 10/11/16 23:20 10/12/16 02:35 Hold Purple Top Tube Received (Received) D-Dimer < 0.50mg/L FEU (<0.50) Hold Blue Top Tube Received (Received) Hemoglobin A1c 6.0% (4.8-5.6) Hold Adams Top Tube Received (Received) Hold Guzman Top Tube Received (Received) Urine Color Dark yellow (YELLOW) Urine Appearance Clear (CLEAR,HAZY) Urine pH 5.5 (5.0-8.0) Urine Specific [place] 1.030 (1.003-1.035) Urine Protein Tracemg/dL (NEG,TRACE) Urine Glucose (UA) Negativemg/dL (NEGATIVE) Urine Ketones 40mg/dL (NEGATIVE) Urine Occult Blood Moderate (NEGATIVE) Urine Nitrite Negative (NEGATIVE) Urine Bilirubin Negative (NEGATIVE) Urine Urobilinogen Normalmg/dL (NORMAL) Urine Leukocyte Esterase Negative (NEGATIVE) Urine RBC 3-10/hpf (0-2) Urine WBC 0-5/hpf (0-5) Urine Epithelial Cells None/hpf (NONE-MOD) Urine Crystals None seen (NONE SEEN) Urine Bacteria Few/hpf (NONE-FEW) Urine Hyaline Casts None/lpf (NONE) Urine Granular Casts None seen (NONE SEEN) Urine Waxy Casts None seen (NONE SEEN) Urine Red Blood Cell Casts None seen (NONE SEEN) Urine White Blood Cell Casts None seen (NONE SEEN) Urine Mucus Present (None Seen) Urine Trichomonas None seen (NONE SEEN) Urine Yeast None (NONE SEEN) Urinalysis Comment None Urine Culture Reflexed Not indicated Hold Urine Received (Received) Neutrophils (%) (Auto) 78.1% (40-74) Lymphocytes (%) (Auto) 12.7% (14-46) Monocytes (%) (Auto) 8.9% (4-12) Eosinophils (%) (Auto) 0% (0-5) Basophils (%) (Auto) 0.1% (0-3) Magnesium Level 2.0mg/dL (1.6-2.6) Triglycerides Level 109mg/dL (0-149) Cholesterol Level 145mg/dL (100-199) LDL Cholesterol, Calculated 81.200mg/dL (0-99) VLDL Cholesterol 21.800mg/dL HDL Cholesterol 42mg/dL (>39) Cholesterol/HDL Ratio 3.45 (0.0-4.4) Procalcitonin 0.09ng/mL (0.00-0.08) Test 10/13/16 12:10 10/13/16 19:20 10/14/16 02:20 Total Bilirubin 0.6mg/dL (0.0-1.2) Direct Bilirubin 0.2mg/dL (0.0-0.3) Aspartate Amino Transf (AST/SGOT) 25U/L (0-50) Alanine Aminotransferase (ALT/SGPT) 20U/L (0-44) Alkaline Phosphatase 80U/L (25-150) Total Creatine Kinase 183U/L (21-232) Creatine Kinase MB 5.0ng/mL (0.0-10.4) Creatine Kinase MB % % (0.0-5.0) Troponin T 0.257ug/L (0.0-0.011) Total Protein 7.0g/dL (6.4-8.4) Albumin 4.6g/dL (3.4-5.0) Activated Partial Thromboplast Time 48.6sec (22.8-33.0) White Blood Count 11.9th/mm3 (3.8-10.1) Red Blood Count 5.05mil/mm3 (4.40-5.80) Hemoglobin 16.0g/dL (13.8-17.2) Hematocrit 46.1% (41.0-50.0) Mean Corpuscular Volume 91.3fL (81-100) Mean Corpuscular Hemoglobin 31.7pg (27.0-35.0) Mean Corpuscular Hemoglobin Concent 34.7% (32.0-37.0) Red Cell Distribution Width 12.8% (12.3-15.4) Platelet Count 202bil/L (150-400) Sodium Level 138mEq/L (134-144) Potassium Level 4.2mEq/L (3.5-5.2) Chloride Level 104mEq/L (97-108) Carbon Dioxide Level 19mmol/L (18-29) Blood Urea Nitrogen 19mg/dL (6-24) Creatinine 0.76mg/dL (0.76-1.27) Estimat Glomerular Filtration Rate 114mL/min (>59) Glucose Level 114mg/dL (60-99) Calcium Level 9.2mg/dL (8.5-10.1) Discharge Medications Discharge Medications Aspirin (Aspirin) 81 Mg Tablet 81 MG PO DAILY (Reported) Atorvastatin (Lipitor) 80 Mg Tablet 80 MG PO DAILY (Reported) Clopidogrel Bisulfate (Plavix) 75 Mg Tablet 75 MG PO DAILY Prescribed by: ISAIAS LUCIANO DO Lisinopril (Lisinopril) 5 Mg Tablet 5 MG PO DAILY Prescribed by: ISAIAS LUCIANO DO Metoprolol Succinate ER (Metoprolol Succinate ER) 25 Mg Tab.er.24h 25 MG PO DAILY Prescribed by: ISAIAS LUCIANO DO Ranitidine (Zantac) 150 Mg Tablet 150 MG PO BID Prescribed by: ISAIAS LUCIANO, As needed Hydrocodone-Acetaminophen 5-300 mg (Hydrocodone-Acetaminophen 5-300 mg) 1 Each Tablet 1 TABLET PO Q4H PRN PRN For Pain (Reported) Ibuprofen (Ibuprofen) 800 Mg Tablet 800 MG PO TID PRN PRN For Pain (Reported) Miscellaneous Medications Multivitamin (Multivitamins) 1 Each Capsule 1 EACH PO (Reported) Additional med instructions Continue: Aspirin 81 mg daily. Atorvastatin 80 mg Daily. Discontinue: Omeprazole daily. Start new medications: - Metoprolol succinate 25 mg daily. - Lisinopril 5 mg daily. - Zantac 150 mg twice per day. - Plavix 75 mg daily. Followup Plan Follow-up plan Follow up with your anesthesiologist in 1 weeks time for a wound check, and 3-4 weeks following cardiac catheterization. Patient Instructions Avoid lifting > 10 pounds for 7-10 days. Avoid submersion under water of your right groin region for at least 2-3 days. You may shower. Avoid swimming in lakes/streams/ponds/ocean for 2 weeks. Follow-up with PCP in: 3 weeks (Dr. Tiny Vaughan in [place], [place] ) Time spent >35mins. ISAIAS LUCIANO DO Oct 17, 2016 16:17
== END 2016-10-14 12:52 | disposition home or self-care (01) ==
LOC: SED 15:19 → INTOOBSV 21:52 → MPC 21:52 → PCC 22:44
PROVIDERS: ADMIT Hospitalist; ATTEND Hospitalist
DX: I21.4 Non-ST elevation (NSTEMI) myocardial infarction (principal); T82.855A Stenosis of coronary artery stent, initial encounter; I25.10 Atherosclerotic heart disease of native coronary artery without angina pectoris; R73.9 Hyperglycemia, unspecified; N20.0 Calculus of kidney; R11.2 Nausea with vomiting, unspecified; D72.829 Elevated white blood cell count, unspecified; E78.5 Hyperlipidemia, unspecified; K21.9 Gastro-esophageal reflux disease without esophagitis; I10 Essential (primary) hypertension; F12.10 Cannabis abuse, uncomplicated; M54.5 Low back pain; Z79.82 Long term (current) use of aspirin; I25.2 Old myocardial infarction; Y84.8 Other medical procedures as the cause of abnormal reaction of the patient, or of later complication, without mention of misadventure at the time of the procedure